=== PATIENT | male | born 1955 | race Caucasian/White ===

== ENCOUNTER 2020-05-03 18:00 | Emergency (ER) | payer MEDICAID, MEDICARE, OTHER, SELFPAY ==
[~2020-05-03] VITALS: Ht 167.6 cm; Wt 50.0 kg
[2020-05-03] MEDS ORDERED: HCTZ (18:20)
[2020-05-03] MEDS ORDERED: ARTANE (18:20)
[2020-05-03] MEDS ORDERED: BENADRYL (18:20)
--- NOTE | 2020-05-03 18:20 | NUR ---
HOLLIE (MARCIA) CELL# [id number]
[2020-05-03] MEDS ORDERED: SODIUM CHLORIDE FLUSH 10ML SYR IVF ONE (19:00)
--- NOTE | 2020-05-03 19:07 | NUR ---
REPORT GIVEN TO DARY
[2020-05-03 19:16] LABS: BASOPHILS # (AUTO) 0.03 x10^3/uL (0-0.1); BASOPHILS % (AUTO) 1 % (0-1); EOSINOPHILS # (AUTO) 0.19 x10^3/uL (0-0.4); EOSINOPHILS % (AUTO) 3 % (1-7); LYMPHOCYTES # (AUTO) 1.93 x10^3/uL (1-3.4); LYMPHOCYTES % (AUTO) 29 % (22-44); MD NO; MEAN CORPUSCULAR HEMOGLOBIN 30.2 pg (27.5-34.5); MEAN CORPUSCULAR HGB CONC 33.2 g/dL (33.2-36.2); MEAN PLATELET VOLUME 8.9 fL (7.4-10.4); MONOCYTES # (AUTO) 0.61 x10^3/uL (0.2-0.8); MONOCYTES % (AUTO) 9 % (2-9); NEUTROPHILS # (AUTO) 3.87 x10^3/uL (1.8-6.8); NEUTROPHILS % (AUTO) 58 % (42-75); PLATELET COUNT 185 x10^3/uL (130-400); RED BLOOD COUNT 3.98 x10^6/uL (4.38-5.82); RED CELL DISTRIBUTION WIDTH 14.5 % (9.4-14.8)
[2020-05-03 19:26] LABS: ALANINE AMINOTRANSFERASE 16 U/L (12-78); ALBUMIN 3.6 g/dL (3.4-5.0); ANION GAP 6 mmol/L (5-15); CALCIUM 8.4 mg/dL (8.5-10.1); CHLORIDE 109 mmol/L (98-107)
[2020-05-03 19:27] LABS: SALICYLATE LEVEL < 1.7 mg/dL (2.8-20.0)
[2020-05-03 19:31] LABS: ALKALINE PHOSPHATASE 115 U/L (45-117); BILIRUBIN,TOTAL 0.4 mg/dL (0.2-1.0); CREATININE 1.44 mg/dL (0.7-1.3); TOTAL PROTEIN 7.3 g/dL (6.4-8.2); TROPONIN I < 0.015 ng/mL (0.000-0.045)
[2020-05-03 19:46] LABS: MICROSCOPIC NOT IND
[2020-05-03 19:58] LABS: AMPHETAMINE SCREEN, URINE Negative (Negative); BARBITURATE SCREEN, URINE Negative (Negative); BENZODIAZEPINE SCREEN, URINE Negative (Negative); CANNABINOID SCREEN, URINE Negative (Negative); COCAINE SCREEN, URINE Negative (Negative); METHADONE SCREEN, URINE Negative (Negative); OPIATE SCREEN, URINE Negative (Negative)
--- NOTE | 2020-05-03 21:08 | NUR ---
rogelio ([facility] - [phone]
[2020-05-03 21:18] VITALS: BP 142/76
--- NOTE | 2020-05-03 22:04 | NUR ---
Placed call to Emma to inform her that pt is DCed and she states she will come pick him up
--- NOTE | 2020-05-03 22:34 | NUR ---
PT FAMILY ARRIVED, PT SAFE TO BE DC'D.
== END 2020-05-03 22:36 | disposition home or self-care (01) ==
LOC: ED 18:41
DX: S63.501A Unspecified sprain of right wrist, initial encounter (principal); S63.502A Unspecified sprain of left wrist, initial encounter; G30.0 Alzheimer's disease with early onset; F02.80 Dementia in other diseases classified elsewhere, unspecified severity, without behavioral disturbance, psychotic disturbance, mood disturbance, and anxiety; N28.9 Disorder of kidney and ureter, unspecified; R51 Headache; I10 Essential (primary) hypertension; W18.30XA Fall on same level, unspecified, initial encounter; Y93.89 Activity, other specified; Y92.009 Unspecified place in unspecified non-institutional (private) residence as the place of occurrence of the external cause; Y99.8 Other external cause status
CPT/HCPCS: 36415; 70450; 71045; 80053; 80307; 81003; 82140; 83605; 84443; 84484; 85025; 93005; 99285

== ENCOUNTER 2020-08-01 14:30 | Observation (INO) | payer MEDICARE, MEDICAID ==
[~2020-08-01] VITALS: Ht 167.6 cm; Wt 49.6 kg
[~2020-08-01 14:30] MED LIST: ARTANE; BENADRYL; HCTZ
--- NOTE | 2020-08-01 15:06 | NUR ---
THIS IS A 65 YO M [facility]IB [facility]/ C/O GLF AFTER EPISDOE OF DIZZINESS. PT DENIES LOC, HITTING HEAD. PT PRESENTS W/ LAC ABOVE RT EYEBROW. PT ALSO HAS C/O NECK TENDERNESS. PT RESTING ON [place] W/ CALL LIGHT IN REACH, CONNECTED TO MONITORING, VSS, NADN. AWAITING CT AND LABS.
[2020-08-01 15:33] LABS: BASOPHILS % (AUTO) 1 % (0-1); EOSINOPHILS % (AUTO) 1 % (1-7); LYMPHOCYTES % (AUTO) 19 % (22-44); MEAN CORPUSCULAR HEMOGLOBIN 28.9 pg (27.5-34.5); MEAN CORPUSCULAR HGB CONC 32.7 g/dL (33.2-36.2); MEAN PLATELET VOLUME 9.5 fL (7.4-10.4); MONOCYTES % (AUTO) 7 % (2-9); NEUTROPHILS % (AUTO) 73 % (42-75); PLATELET COUNT 146 x10^3/uL (130-400); RED BLOOD COUNT 4.66 x10^6/uL (4.38-5.82); RED CELL DISTRIBUTION WIDTH 14.6 % (9.4-14.8)
[2020-08-01 15:37] LABS: MD NO
--- NOTE | 2020-08-01 15:42 | NUR ---
PT RETURNED TO ROOM FROM CT. PT WAS LEFT SITTING UP AT 90DEGREE ANGLE, RETURNED TO CSPINE PRECAUTIONS. AWAITING CT RESULTS.
[2020-08-01 15:43] LABS: ALBUMIN 3.8 g/dL (3.4-5.0); ANION GAP 5 mmol/L (5-15); CALCIUM 8.7 mg/dL (8.5-10.1); CHLORIDE 113 mmol/L (98-107); CREATININE 1.62 mg/dL (0.7-1.3)
--- NOTE | 2020-08-01 15:50 | NUR ---
ALL TESTS RESULTED. PT IS UP FOR RECHECK AT THIS TIME.
[2020-08-01] MEDS ORDERED: ASPI81TA45 PO (17:12)
[2020-08-01] MEDS ORDERED: MEMA5TAB PO (17:12)
[2020-08-01] MEDS ORDERED: ZINC PO (17:12)
[2020-08-01] MEDS ORDERED: MAGN250T8 PO (17:12)
[2020-08-01] MEDS ORDERED: TELM40TA PO (17:12)
[2020-08-01] MEDS ORDERED: DONE5TAB7 PO (17:12)
[2020-08-01] MEDS ORDERED: ATOR-2 PO (17:12)
--- NOTE | 2020-08-01 18:28 | NUR ---
CARDIAC DIET TRAY DELIVERED TO PT. SITTER AT BEDSIDE FOR MEAL ASSISTANCE. PT RESTING ON [place] W/ CALL LIGHT IN REACH, RESP EVEN AND UNLABORED, EVANGELINA.
--- NOTE | 2020-08-01 18:43 | NUR ---
BEDSIDE REPORT FROM YAAKOV RN, PT CARE TRANSFERRED AT THIS TIME.
--- NOTE | 2020-08-01 18:55 | NUR ---
REPORT GIVEN TO DIANE MAN. PT RESTING ON GURNEY W/ CALL LIGHT IN REACH, VSS, LORINN. AWAITING ADMIT. Addendum: 08/01/20 at 1856 by MALKA REPORT GIVEN TO DIANE MAN. PT RESTING ON GURNEY W/ CALL LIGHT IN REACH, PT HYPERTENISVE, OTHER VS WDL, LORINN. AWAITING ADMIT.
--- NOTE | 2020-08-01 19:01 | NUR ---
PT RESTING ON L[place]IN [place], SITTER AT BEDSIDE. PT IS MOVING AROUND AND SIGNIFICANTLY FIDGETING AT THIS TIME BUT DENIES ADDITIONAL NEEDS AT THIS TIME. FINISHED EATING MEAL, ATE APPROXIMATELY 75% AND IS STATING "I NORMALLY EAT PUREED FOOD". BED IN LOWEST, CALL LIGHT ON LAP, WCTM. WAITING FOR ADMIT BED.
--- NOTE | 2020-08-01 20:02 | NUR ---
HOLLIE QUIGLEY SIGNIFICANT OTHER, MED RLS OKAY'D
[2020-08-01] MEDS ORDERED: ACETAMINOPHEN 325 MG TABLET PO PRN (20:30)
[2020-08-01] MEDS ORDERED: BISACODYL 10 MG SUPP PR PRN (20:30)
[2020-08-01] MEDS ORDERED: DOCUSATE 100 MG CAPSULE PO PRN (20:30)
[2020-08-01] MEDS ORDERED: POLYETHYLENE GLYCOL 17 GM PACKET PO PRN (20:30)
--- NOTE | 2020-08-01 20:58 | NUR ---
PT RESTING ON GURNEY, WATCHING FAMILY FEUD, NAD, APPEARS COMFORTABLE, DENIES ADDITIONAL QUESTIONS OR NEEDS AT THIS TIME. SITTER AT BS. TM. WAITING FOR ADMIT BED.
[2020-08-01] MEDS ORDERED: ATORVASTATIN 80 MG TABLET PO SCH (21:00)
[2020-08-01 21:31] LABS: TROPONIN I < 0.015 ng/mL (0.000-0.045)
[2020-08-01] MEDS ORDERED: ATORVASTATIN 40 MG TABLET PO SCH (22:22)
[2020-08-01 22:40] VITALS: BP 174/86
[2020-08-01 22:45] VITALS: BP 190/95
[2020-08-01 22:50] VITALS: BP 154/81
[2020-08-01 22:50] LABS: MICROSCOPIC AUTO
[2020-08-01] MEDS: SODIUM CHLORIDE 0.9% 1,000 ML IV SCH (23:21)
[2020-08-01] MEDS: DONEPEZIL 5 MG TABLET PO SCH (23:23)
[2020-08-01] MEDS: MEMANTINE 5MG TABLET PO SCH (23:23)
[2020-08-01] MEDS: HEPARIN 5,000 UNITS/ML, 1ML SQ SCH (23:23)
[2020-08-02] VITALS (7 sets, daily range): BP systolic 154–193; BP diastolic 79–93
[2020-08-02] MEDS ORDERED: hydrALAzine 20 MG/ML, 1ML IV PRN ×2 (00:30)
[2020-08-02] MEDS ORDERED: MELATONIN 5 MG TABLET PO PRN (01:00)
[2020-08-02 03:03] LABS: BASOPHILS % (AUTO) 0 % (0-1); EOSINOPHILS % (AUTO) 2 % (1-7); LYMPHOCYTES % (AUTO) 24 % (22-44); MEAN CORPUSCULAR HGB CONC 32.9 g/dL (33.2-36.2); MEAN PLATELET VOLUME 9.6 fL (7.4-10.4); MONOCYTES % (AUTO) 8 % (2-9); NEUTROPHILS % (AUTO) 65 % (42-75); PLATELET COUNT 132 x10^3/uL (130-400); RED BLOOD COUNT 4.54 x10^6/uL (4.38-5.82); RED CELL DISTRIBUTION WIDTH 14.8 % (9.4-14.8)
[2020-08-02 03:06] LABS: ALANINE AMINOTRANSFERASE 21 U/L (12-78); ALBUMIN 3.6 g/dL (3.4-5.0); ANION GAP 5 mmol/L (5-15); CALCIUM 8.5 mg/dL (8.5-10.1); CHLORIDE 114 mmol/L (98-107); CREATININE 1.42 mg/dL (0.7-1.3)
[2020-08-02 03:07] LABS: MD NO
[2020-08-02 03:12] LABS: TROPONIN I < 0.015 ng/mL (0.000-0.045)
[2020-08-02 03:18] LABS: ALKALINE PHOSPHATASE 91 U/L (45-117); BILIRUBIN,TOTAL 0.9 mg/dL (0.2-1.0)
[2020-08-02 03:19] LABS: TOTAL PROTEIN 7.2 g/dL (6.4-8.2)
[2020-08-02] MEDS: HEPARIN 5,000 UNITS/ML, 1ML SQ SCH ×3 (06:35→22:25)
[2020-08-02] MEDS: LOSARTAN 50MG TABLET PO SCH (08:46)
[2020-08-02] MEDS: MEMANTINE 5MG TABLET PO SCH ×2 (08:46→20:51)
[2020-08-02] MEDS: MAGNESIUM OXIDE 400 MG TABLET PO SCH (08:46)
[2020-08-02] MEDS: ASPIRIN 81 MG TABLET EC PO SCH (08:47)
[2020-08-02] MEDS: SODIUM CHLORIDE 0.9% 1,000 ML IV SCH (08:47)
[2020-08-02] MEDS: DONEPEZIL 5 MG TABLET PO SCH (20:51)
[2020-08-03] MEDS: SODIUM CHLORIDE 0.9% 1,000 ML IV SCH ×2 (01:02→13:34)
[2020-08-03 03:08] VITALS: BP 167/82
[2020-08-03 06:01] LABS: ANION GAP 4 mmol/L (5-15); CHLORIDE 113 mmol/L (98-107)
[2020-08-03 06:02] LABS: CALCIUM 8.5 mg/dL (8.5-10.1); CREATININE 1.21 mg/dL (0.7-1.3)
[2020-08-03] MEDS: HEPARIN 5,000 UNITS/ML, 1ML SQ SCH ×3 (06:04→14:40)
[2020-08-03 06:08] VITALS: BP 136/72
[2020-08-03] MEDS: LOSARTAN 50MG TABLET PO SCH (09:38)
[2020-08-03] MEDS: ASPIRIN 81 MG TABLET EC PO SCH (09:38)
[2020-08-03] MEDS: MEMANTINE 5MG TABLET PO SCH (09:38)
[2020-08-03] MEDS: MAGNESIUM OXIDE 400 MG TABLET PO SCH (09:47)
[2020-08-03 13:22] VITALS: BP 174/82
== END 2020-08-03 17:04 | disposition home or self-care (01) ==
LOC: ED 16:19 → INTOOBSV 16:20 → EDIP 16:20 → ED 16:38 → 4WST 22:18
PROVIDERS: ADMIT Hospitalist; ATTEND Hospitalist
DX: S01.81XA Laceration without foreign body of other part of head, initial encounter (principal); E78.5 Hyperlipidemia, unspecified; G20 Parkinson's disease; F02.80 Dementia in other diseases classified elsewhere, unspecified severity, without behavioral disturbance, psychotic disturbance, mood disturbance, and anxiety; N17.0 Acute kidney failure with tubular necrosis; E86.0 Dehydration; I10 Essential (primary) hypertension; I70.0 Atherosclerosis of aorta; I77.810 Thoracic aortic ectasia; Z79.82 Long term (current) use of aspirin; Z86.73 Personal history of transient ischemic attack (TIA), and cerebral infarction without residual deficits; Z79.899 Other long term (current) drug therapy; Z87.891 Personal history of nicotine dependence; Z66 Do not resuscitate; W06.XXXA Fall from bed, initial encounter; Y92.003 Bedroom of unspecified non-institutional (private) residence as the place of occurrence of the external cause; Y93.89 Activity, other specified
CPT/HCPCS: 36415; 70450; 72125; 80048; 80053; 81001; 82040; 83735; 84100; 84443; 84484; 85025; 92523; 93005; 93306; 96360; 96361; 96372; 97162; 97166; 99285; G0378; J1644; J7030